=== PATIENT | male | born 1955 | race Caucasian/White ===

== ENCOUNTER → 2018-09-06 10:09 | Outpatient (CLI) | payer OTHER, SELFPAY ==
[2018-09-06 12:01] LABS: Absolute Lymphocyte Count 0.95 X10^3/ul (0.83-4.51); Absolute Neutrophil Count 1.9 X10^3/uL (2.0-7.7); Basophil# 0.02 X10^3/uL; Basophil% 0.6 % (0-1); Eosinophil# 0.11 X10^3/uL; Eosinophils% 3.3 % (0-5); Hematocrit 40.5 % (40-54); Hemoglobin 13.3 g/dl (13.0-16.5); Lymphocyte # 0.95 X10^3/ul (4.0); Lymphocyte % 28.4 % (19-41); Mean Corp Hgb Conc 32.8 g/gl (32-36); Mean Corpuscular Hgb 32.2 pg (27.0-32.0); Mean Corpuscular Volume 98.1 fL (80-94); Mean Platelet Vol. 9.8 fl (6.2-12.0); Monocyte# 0.41 X10^3/uL; Monocyte% 12.2 % (0-10); Neutrophil # 1.85 X10^3/uL (2.7-7.7); Neutrophil % 55.2 % (47-70); POSITIVE COUNT NO; POSITIVE DIFFERENTIAL NO; POSITIVE MORPHOLOGY NO; Platelet Count 239 K/mm3 (150-450); RBC Distribution Width CV 13.4 % (11.6-14.6); RBC Distribution Width SD 46.3 fl (35.1-43.9); Red Blood Count 4.13 M/mm3 (4.6-6.2); White Blood Count 3.4 K/mm3 (4.4-11.0)
[2018-09-06 12:20] LABS: AST(SGOT) 13 U/L (15-37); Alanine Aminotransfer ALT/SGPT 27 U/L (16-61); Albumin, Serum 3.5 g/dL (3.2-5.0); Alkaline Phosphatase 74 U/L (45-117); Anion Gap 10 (5-15); BUN 16 mg/dL (7-18); Calcium,Total 8.6 mg/dL (8.5-10.1); Chloride 105 mmol/L (98-107); Cholesterol 237 mg/dL (200); Creatinine, Serum 0.84 mg/dL (0.70-1.30); EST Glomerular Filtration Rate 98 mL/min (>60); Est Glom Filt Rate - Afr Amer 118 mL/min (>60); Globulin 3.4 g/dL (2.2-4.2); Glucose 79 mg/dL (74-106); High Density Lipoprotein 65 mg/dL; PSA,Total - Annual Screen 1.04 ng/mL (0.00-4.00); Protein, Total 6.9 g/dL (6.4-8.2); Sodium Level 144 mmol/L (136-145); T4 Free Direct 0.94 ng/dL (0.76-1.46); Thyroid Stim Hormone (TSH) 2.82 uIU/mL (0.358-3.74); Triglycerides 73 mg/dL; Very Low Density Lipoprotein 15 mg/dL (5-40)
== END ==
PROVIDERS: Family Provider Family Medicine; PCP Family Medicine; Visit Provider Family Medicine
DX: Z00.00 Encounter for general adult medical examination without abnormal findings (principal); E03.9 Hypothyroidism, unspecified; Z12.5 Encounter for screening for malignant neoplasm of prostate
CPT/HCPCS: 36415; 80053; 80061; 84153; 84439; 84443; 85025; G0103

== ENCOUNTER → 2018-09-27 09:44 | Outpatient (CLI) | payer OTHER, SELFPAY ==
--- NOTE | 2018-09-27 09:45 | RAD_ITS ---
STUDY: X-RAY - RIGHT KNEE REASON FOR EXAM: Male, 63 years old. Pain TECHNIQUE: 4 view(s) of the knee. COMPARISON: Left knee dated September 27, 2018 FINDINGS: Normal visualized distal femur. Normal visualized proximal tibia and fibula. Normal proximal tibiofibular articulation. There is mild degenerative arthrosis of the medial femorotibial compartment. Normal lateral femorotibial compartment. Normal patellofemoral articulation. The soft tissue structures are unremarkable. RAD/Knee 4 or More Views IMPRESSION: Mild degenerative changes. Electronically Signed: Marci Powell MD at 16:02 EST Tel , Service support ,
--- NOTE | 2018-09-27 09:45 | RAD_ITS ---
STUDY: X-RAY - LEFT KNEE REASON FOR EXAM: Male, 63 years old. Knee pain, no known injury. TECHNIQUE: 4 view(s) of the knee. COMPARISON: None. FINDINGS: Normal visualized distal femur. Normal visualized proximal tibia and fibula. Normal proximal tibiofibular articulation. There is no demonstrated fracture. There is minimal narrowing and small subchondral cyst of the medial femorotibial compartment. Normal lateral femorotibial compartment. Normal patellofemoral articulation. There is no demonstrated joint effusion. The soft tissue structures are unremarkable. RAD/Knee 4 or More Views IMPRESSION: Minimal degenerative arthrosis. Electronically Signed: Dyllan Huggins MD at 8:30 EST Tel , Service support ,
== END ==
PROVIDERS: Family Provider Family Medicine; PCP Family Medicine; Referring Provider Orthopaedic Surgery; Visit Provider Orthopaedic Surgery
DX: M25.561 Pain in right knee (principal); M25.562 Pain in left knee
CPT/HCPCS: 73564

== ENCOUNTER → 2019-09-11 09:22 | Outpatient (CLI) | payer OTHER, SELFPAY ==
[2018-09-27 09:53] VITALS: BMI 23.7
[2019-09-11 12:33] LABS: Absolute Lymphocyte Count 1.28 X10^3/uL (0.83-4.51); Absolute Neutrophil Count 1.9 X10^3/uL (2.0-7.7); Basophil# 0.03 X10^3/uL; Basophil% 0.8 % (0-1); Eosinophil# 0.16 X10^3/uL; Eosinophils% 4.2 % (0-5); Hematocrit 46.5 % (40-54); Hemoglobin 15.6 g/dL (13.0-16.5); Lymphocyte # 1.28 X10^3/ul (4.0); Lymphocyte % 33.6 % (19-41); Mean Corp Hgb Conc 33.5 g/dL (32-36); Mean Corpuscular Volume 95.3 fL (80-94); Mean Platelet Vol. 9.7 fl (6.2-12.0); Monocyte% 10.5 % (0-10); NRBC Flagged by Analyzer 0 % (0-5); Neutrophil # 1.92 X10^3/uL (2.7-7.7); Neutrophil % 50.4 % (47-70); Platelet Count 270 K/mm3 (150-450); RBC Distribution Width CV 12.1 % (11.6-14.6); RBC Distribution Width SD 42.3 fl (35.1-43.9); Red Blood Count 4.88 M/mm3 (4.6-6.2); White Blood Count 3.8 K/mm3 (4.4-11.0)
[2019-09-11 13:11] LABS: AST(SGOT) 15 U/L (15-37); Alanine Aminotransfer ALT/SGPT 28 U/L (16-61); Albumin, Serum 3.7 g/dL (3.2-5.0); Alkaline Phosphatase 93 U/L (45-117); Anion Gap 5 (5-15); BUN 13 mg/dL (7-18); BUN/Creat Ratio 14.5 RATIO (10-20); Calcium,Total 9.1 mg/dL (8.5-10.1); Chloride 106 mmol/L (98-107); Cholesterol 262 mg/dL (200); EST Glomerular Filtration Rate 91 mL/min (>60); Est Glom Filt Rate - Afr Amer 110 mL/min (>60); Globulin 3.6 g/dL (2.2-4.2); Glucose 87 mg/dL (74-106); High Density Lipoprotein 68 mg/dL; Potassium 4.4 mmol/L (3.5-5.1); Protein, Total 7.3 g/dL (6.4-8.2); Sodium Level 140 mmol/L (136-145); T4 Free Direct 1.02 ng/dL (0.76-1.46); Thyroid Stim Hormone (TSH) 2.84 uIU/mL (0.358-3.74); Triglycerides 59 mg/dL; Very Low Density Lipoprotein 12 mg/dL (5-40)
[2019-09-12 16:48] LABS: V-Zoster IgG (Immunity) 175 index (Immune >165)
== END ==
PROVIDERS: PCP Family Medicine; Visit Provider Family Medicine
DX: Z00.00 Encounter for general adult medical examination without abnormal findings (principal); E03.9 Hypothyroidism, unspecified; Z12.5 Encounter for screening for malignant neoplasm of prostate; Z23 Encounter for immunization
CPT/HCPCS: 36415; 80053; 80061; 84153; 84439; 84443; 85025; 86787; G0103

== ENCOUNTER → 2019-10-08 08:48 | Outpatient (CLI) | payer OTHER, SELFPAY ==
[2019-10-08 08:46] VITALS: BMI 23.7
--- NOTE | 2019-10-08 08:49 | RAD_ITS ---
STUDY: X-RAY - RIGHT ELBOW REASON FOR EXAM: Male, 64 years old. FLUID POCKET POSTERIOR/MEDIAL ELBOW TECHNIQUE: 3 view(s) of the elbow. COMPARISON: None. FINDINGS: Normal visualized humerus, radius and ulna. Normal radiocapitellar and ulnotrochlear articulations. The soft tissue structures are unremarkable. RAD/Elbow min 3 Views IMPRESSION: Normal x-ray examination of the elbow. Electronically Signed: Jonathan Campos MD at 16:57 EDT , Service support ,
== END ==
PROVIDERS: PCP Family Medicine; Referring Provider Orthopaedic Surgery; Visit Provider Orthopaedic Surgery
DX: M25.421 Effusion, right elbow (principal)
CPT/HCPCS: 73080

== ENCOUNTER → 2021-03-24 07:20 | Outpatient (CLI) | payer MEDICARE, SELFPAY ==
[2019-10-08 08:46] VITALS: BMI 23.7
--- NOTE | 2021-03-24 07:26 | CT_ITS ---
STUDY: LOW DOSE CT LUNG CANCER SCREENING REASON FOR EXAM: Male, 65 years old. SCREENING FOR LUNG CA,HO SMOKING W/CHEMICAL INHALATION EXPOSURE,. Patient smoked half a pack of cigarettes per day for 20 years. Patient quit 12 years ago. RADIATION DOSAGE (If Supplied By Facility): CTDIvol = ( 3.02 ) mGy, DLP = ( 110.98 ) mGycm TECHNIQUE: No contrast was administered. Low dose technique was utilized (average mAS-38 and kVp 120). 1.25 mm axial source images with a slice interval of 1.25-mm were reconstructed in lung windows. 2.5 mm axial source images with a slice interval of 2.5-mm were reconstructed in lung windows. 5.0 mm axial source images with a slice interval of 5.0-mm were reconstructed in soft tissue windows. Nodule measured using lung windows on PACS and/or independent workstation with automated measurement of minimum and maximum diameter. Nodule measurement reported as average diameter rounded to the nearest whole number. Growth is defined as an increase ins size of greater than 1.5 mm. COMPARISON: None. NODULES: 2 mm calcified granuloma in the posterior medial aspect of the right upper lobe. This is pleural-based. Punctate calcified granuloma in the right lower lobe adjacent to the right hemidiaphragm. Emphysema: Mild degree of emphysematous changes Endobronchial lesion: None Aorta: Mild degree of atherosclerotic plaque formation. Coronary arteries: Coronary artery calcification. Mediastinal nodes: Calcified right infrahilar lymph node and subcarinal nodes. Other chest and abdominal findings: Degenerative changes of the thoracic spine. Sclerosis in the cystic changes along the inferior endplate of the C6 vertebrae. CT/Low Dose CT Lung Screening IMPRESSION: Lung-RADS category 2 - Continue annual screening with LDCT in 12 months. IMPORTANT NOTES FOR USE: ACR Lung-RADS Version 1.1 Assessment Categories Release Date: 2018 Category: Coded 0-4 bases on nodule(s) with highest degree of suspicion. Negative screen is defined as categories 1 and 2; a positive screen is defined as categories 3 and 4. Category 3 and 4A nodules that are unchanged on interval CT should be coded as category 2, and individuals returned to screening in 12 months. Category 4X: Category 3 or 4 nodules with additional imaging findings that increase the suspicion of lung cancer, such as spiculation, GGN that doubles in size in 1 year, enlarged lymph notes, etc. Category Modifiers: S (significant finding unrelated to lung cancer) Electronically Signed: Maverick Paula MD at 9:49 EDT , Service support ,
--- NOTE | 2021-03-24 07:38 | US_ITS ---
PROCEDURES: ULTRASOUND AORTA REASON FOR EXAM: Male, 65 years old. SCREENING TECHNIQUE: Ultrasound evaluation of the aorta was performed with real-time and static fairchild-scale imaging. COMPARISON: None. FINDINGS: There is no elongation or tortuosity of the abdominal aorta. Aorta measures: Proximal 2.1 cm. Middle 2.0 cm. Distal 1.7 cm. Aorta measure transversely: Proximal 2.0 cm. Middle 1.8 cm. Distal 1.2 cm. Right iliac artery measures: 1.4 cm. Right iliac artery measure transversely: 1.1 cm. Left iliac artery measures: 1.1 cm. Left iliac artery measure transversely: 1.0 cm. There is no demonstrated aneurysm.. US/US ABD AORTA SCREEN/AAA IMPRESSION: Normal abdominal aorta. Electronically Signed: Maverick Paula MD at 13:44 EDT , Service support ,
== END ==
PROVIDERS: PCP Family Medicine; Referring Provider Family Medicine; Visit Provider Family Medicine
DX: Z12.2 Encounter for screening for malignant neoplasm of respiratory organs (principal); Z13.6 Encounter for screening for cardiovascular disorders; Z87.891 Personal history of nicotine dependence
CPT/HCPCS: 71271; 76706

== ENCOUNTER → 2022-03-21 | Outpatient (CLI) | payer MEDICARE, SELFPAY ==
[2022-03-21 15:52] LABS: Cholesterol 283 mg/dL (200); High Density Lipoprotein 66 mg/dL; PSA,Total - Annual Screen 1.62 ng/mL (0.00-4.00); Thyroid Stim Hormone (TSH) 2.72 uIU/mL (0.358-3.74); Triglycerides 100 mg/dL; Very Low Density Lipoprotein 20 mg/dL (5-40)
== END | disposition home or self-care (01) ==
LOC: MTLAB 14:07
PROVIDERS: PCP Family Medicine; Referring Provider Family Medicine; Visit Provider Family Medicine
DX: E78.5 Hyperlipidemia, unspecified (principal); E03.9 Hypothyroidism, unspecified; Z12.5 Encounter for screening for malignant neoplasm of prostate
CPT/HCPCS: 36415; 80061; 84153; 84443; G0103

== ENCOUNTER → 2023-07-18 | Outpatient (CLI) | payer MEDICARE, SELFPAY ==
[2023-07-18 15:35] LABS: Absolute Lymphocyte Count 1.27 X10^3/uL (0.83-4.51); Absolute Neutrophil Count 2.2 X10^3/uL (2.0-7.7); Basophil# 0.01 X10^3/uL; Basophil% 0.3 % (0-1); Eosinophil# 0.07 X10^3/uL; Eosinophils% 1.8 % (0-5); Hematocrit 46.4 % (40-54); Hemoglobin 15.1 g/dL (13.0-16.5); Lymphocyte # 1.27 X10^3/ul (0.83-4.51); Lymphocyte % 31.8 % (19-41); Mean Corp Hgb Conc 32.5 g/dL (32-36); Mean Corpuscular Hgb 32.2 pg (27.0-32.0); Mean Corpuscular Volume 98.9 fL (80-94); Mean Platelet Vol. 9.9 fl (6.2-12.0); Monocyte# 0.44 X10^3/uL; NRBC Flagged by Analyzer 0 % (0-5); Neutrophil # 2.19 X10^3/uL (2.7-7.7); Neutrophil % 54.8 % (47-70); Platelet Count 282 K/mm3 (150-450); RBC Distribution Width CV 12.8 % (11.6-14.6); Red Blood Count 4.69 M/mm3 (4.6-6.2)
[2023-07-18 16:07] LABS: AST(SGOT) 18 U/L (15-37); Alanine Aminotransfer ALT/SGPT 24 U/L (16-61); Albumin, Serum 3.7 g/dL (3.2-5.0); Alkaline Phosphatase 72 U/L (45-117); Anion Gap 7 (5-15); BUN 17 mg/dL (7-18); BUN/Creat Ratio 22.8 RATIO (10-20); Calcium,Total 8.7 mg/dL (8.5-10.1); Chloride 104 mmol/L (98-107); Cholesterol 259 mg/dL (200); Creatinine, Serum 0.75 mg/dL (0.70-1.30); EST Glomerular Filtration Rate 111 mL/min (>60); Est Glom Filt Rate - Afr Amer 134 mL/min (>60); Globulin 3.6 g/dL (2.2-4.2); Glucose 95 mg/dL (74-106); High Density Lipoprotein 72 mg/dL; PSA,Total - Annual Screen 1.63 ng/mL (0.00-4.00); Potassium 4.2 mmol/L (3.5-5.1); Protein, Total 7.3 g/dL (6.4-8.2); Sodium Level 141 mmol/L (136-145); T4 Free Direct 1.02 ng/dL (0.76-1.46); Thyroid Stim Hormone (TSH) 2.06 uIU/mL (0.358-3.74); Triglycerides 77 mg/dL; Very Low Density Lipoprotein 15 mg/dL (5-40)
== END | disposition home or self-care (01) ==
PROVIDERS: PCP Family Medicine; Visit Provider Family Medicine
DX: E78.5 Hyperlipidemia, unspecified (principal); Z12.5 Encounter for screening for malignant neoplasm of prostate; Z51.81 Encounter for therapeutic drug level monitoring; Z78.9 Other specified health status; E03.9 Hypothyroidism, unspecified
CPT/HCPCS: 36415; 80053; 80061; 84153; 84439; 84443; 85025; G0103

== ENCOUNTER → 2023-10-16 | Outpatient (CLI) | payer MEDICARE, SELFPAY | END | disposition home or self-care (01) | LOC: SL 11:31 | PROVIDERS: PCP Family Medicine; Referring Provider Family Medicine; Visit Provider Family Medicine | DX: G47.10 Hypersomnia, unspecified (principal) | CPT/HCPCS: 95806 ==

== ENCOUNTER → 2023-11-01 | Outpatient (CLI) | payer MEDICARE, SELFPAY | END | disposition home or self-care (01) | LOC: SL 09:21 | PROVIDERS: PCP Family Medicine; Visit Provider Family Medicine | DX: Z00.00 Encounter for general adult medical examination without abnormal findings (principal) ==

== ENCOUNTER → 2024-07-21 | Outpatient (CLI) | payer MEDICARE, SELFPAY ==
[2024-07-21 12:16] LABS: Absolute Neutrophil Count 2.8 X10^3/uL (2.0-7.7); Basophil# 0.01 X10^3/uL; Basophil% 0.2 % (0-1); Eosinophil# 0.19 X10^3/uL; Eosinophils% 3.9 % (0-5); Hematocrit 44.2 % (40-54); Hemoglobin 14.4 g/dL (13.0-16.5); Lymphocyte % 26.5 % (19-41); Mean Corp Hgb Conc 32.6 g/dL (32-36); Mean Corpuscular Hgb 32.2 pg (27.0-32.0); Mean Corpuscular Volume 98.9 fL (80-94); Mean Platelet Vol. 9.8 fl (6.2-12.0); Monocyte# 0.56 X10^3/uL; Monocyte% 11.4 % (0-10); NRBC Flagged by Analyzer 0 % (0-5); Neutrophil # 2.84 X10^3/uL (2.7-7.7); Neutrophil % 57.8 % (47-70); Platelet Count 281 K/mm3 (150-450); RBC Distribution Width CV 12.5 % (11.6-14.6); RBC Distribution Width SD 45.2 fl (35.1-43.9); Red Blood Count 4.47 M/mm3 (4.6-6.2); White Blood Count 4.9 K/mm3 (4.4-11.0)
[2024-07-21 12:31] LABS: ALB/GLOB Ratio 0.9 RATIO (0.9-2.4); AST(SGOT) 17 U/L (15-37); Alanine Aminotransfer ALT/SGPT 25 U/L (16-61); Albumin, Serum 3.5 g/dL (3.2-5.0); Alkaline Phosphatase 86 U/L (45-117); Anion Gap 4 (5-15); BUN 18 mg/dL (7-18); BUN/Creat Ratio 20.6 RATIO (10-20); Chloride 105 mmol/L (98-107); Cholesterol 240 mg/dL (200); Creatinine, Serum 0.87 mg/dL (0.70-1.30); EST Glomerular Filtration Rate 92 mL/min (>60); Est Glom Filt Rate - Afr Amer 111 mL/min (>60); Globulin 3.9 g/dL (2.2-4.2); Glucose 111 mg/dL (74-106); High Density Lipoprotein 63 mg/dL; PSA,Total - Annual Screen 1.98 ng/mL (0.00-4.00); Potassium 3.9 mmol/L (3.5-5.1); Protein, Total 7.4 g/dL (6.4-8.2); Sodium Level 137 mmol/L (136-145); T4 Free Direct 1.11 ng/dL (0.76-1.46); Triglycerides 67 mg/dL; Very Low Density Lipoprotein 13 mg/dL (5-40); Vitamin B12 633 pg/mL (211-911)
== END | disposition home or self-care (01) ==
LOC: BFHLAB 08:46
PROVIDERS: PCP Family Medicine; Visit Provider Family Medicine
DX: I25.10 Atherosclerotic heart disease of native coronary artery without angina pectoris (principal); E03.9 Hypothyroidism, unspecified; E78.5 Hyperlipidemia, unspecified; Z12.5 Encounter for screening for malignant neoplasm of prostate; E53.8 Deficiency of other specified B group vitamins; D75.89 Other specified diseases of blood and blood-forming organs
CPT/HCPCS: 36415; 80053; 80061; 82607; 84153; 84439; 84443; 85025; G0103

== ENCOUNTER 2024-11-04 10:34 | Emergency (ER) | payer MEDICARE, SELFPAY ==
[2024-11-04 10:34] VITALS: BP 140/83; PULSE 86; RESP 14; TEMP 36.1; O2SAT 97; BMI 25.9
--- NOTE | 2024-11-04 11:05 | EDS_ITS ---
HPI History of Present Illness Chief Complaint: Headache Detail of Chief Complaint: headache Informant: patient Narrative Narrative: Patient presents with a headache that started suddenly yesterday at 5pm after doing mulch outside all day. Pain started in back of neck and went to top of head. No vomitting. No recent illness. No history of migraines. Patient states he fell off a ladder about 4-5 feet into grass 3 weeks ago. No LOC. He has history of vertigo. Not on blood thinnners. No family history of brain tumors or aneurysms. PFSH [facility] Medical History (Updated 11/04/24 @ 13:[address] Gaurav Che, DO) Hypothyroid Effusion of knee joint right Primary osteoarthritis of right knee Home Medications ?Medication ?Instructions ?Recorded ?Last Taken ?Type levothyroxine 50 mcg tablet 50 mcg PO DAILY 09/27/18 U nknown History (Synthroid) selenium 200 mcg capsule 200 mcg PO DAILY 09/27/18 Un known History omega-3 acid ethyl esters 1 gram PO 10/08/19 Unknown H istory capsule calcium carbonate (Calcium 600) 600 mg PO DAILY Unknown History coenzyme Q10 10 mg capsule (Co 10 mg PO ONCE 11/28/21 Unknown History Q-10) Allergy/AdvReac Type Severity Reaction Status Date / Time latex AdvReac Intermediate Rash Verified 11/01/22 09:28 Surgical History Hx of hernia repair Social History (Updated 06/21/22 @ 08:41 by Nishi Devries) Smoking Status: Never smoker alcohol intake: current alcohol intake frequency: a few times a week ROS ROS ED Review of Systems ROS Unobtainable: other Constitutional Constitutional ED: Reports lethargy; Denies chills, fever(s), sweats or weight loss Eyes Eyes: Denies blurry vision, change in vision or diplopia ENT ENT ED: Denies rhinorrhea or sore throat Cardiovascular Cardiovascular: Denies chest pain, orthopnea or racing heartbeat Respiratory/Chest Respiratory/Chest: Denies cough, dyspnea, dyspnea on exertion, orthopnea or sputum Gastrointestinal Gastrointestinal: Denies abdominal pain, diarrhea, nausea or vomiting Genitourinary Genitourinary ED: Denies dysuria, hematuria or urinary frequency Musculoskeletal Musculoskeletal: Reports neck pain; Denies arthralgias, back pain or myalgias Integumentary Denies abscess, Abrasions or rash Neurologic Neurologic: Reports headache(s); Denies weakness Psychiatric Psychiatric: Denies anxiety, depression or suicidal thoughts Endocrine Endocrinology: Denies polydipsia, polyphagia or polyuria Hematologic/Lymphatic Hematologic/Lymphatic: Denies easy bleeding, easy bruising or lymphadenopathy Allergic/Immunologic Allergic/Immunologic ED: Denies mouth swelling, tongue swelling or urticaria EXAM Physical Exam Const Vital Signs: 11/04/24 10:34 11/04/24 11:40 11/04/24 12:00 Temperature 97 F L Temperature Source Temporal Pulse Rate 86 89 Respiratory Rate 14 16 Blood Pressure 140/83 H 153/105 H 156/104 H Blood Pressure Mean 102 121 121 Pulse Ox 97 98 Oxygen Delivery Method Room Air Room Air 11/04/24 12:38 Temperature Temperature Source Pulse Rate Respiratory Rate Blood Pressure 132/90 H Blood Pressure Mean 104 Pulse Ox Oxygen Delivery Method Positive well nourished and well developed General Appearance ED: well developed and NAD HEENT Reports TM's clear and moist mucous membranes normocephalic and atraumatic; Negative for trauma or tenderness Tympanic Membrane ED: Yes TM's clear Eyes PERRL and EOMs intact bilaterally General Eye ED: Negative for pale conjunctiva or scleral icterus Neck no lymphadenopathy, supple and no JVD General: Negative for tenderness Chest Wall inspection of chest normal and palpation of chest normal Chest: Negative for tenderness Resp normal respiratory effort and clear to auscultation bilaterally Effort and Inspection: Negative for respiratory distress or pain with movement Auscultation: Negative for rhonchi, wheezes or diminished lung sounds Cardio regular rate, regular rhythm, S1 normal heart sound, S2 normal heart sound and no murmurs Peripheral Pulses: pulses 2+ throughout GI normal to inspection, nondistended, normoactive bowel sounds, soft to palpation, non-tender, non-distended and no masses Back/Spine no CVA tenderness and no thoracic nor lumbar tenderness Extremity normal to inspection General Extremety ED: Negative for edema General Extremity: Negative for edema Neuro oriented x3, CN's II-XII intact bilaterally, no sensory deficits noted and gait normal Sensorium / Orientation: awake, alert, oriented to person, oriented to place and oriented to time Motor Exam: strength 5/5 throughout and strength abnormal Psych mental status grossly normal Skin no rashes or lesions noted and no wounds MDM MDM MDM Narrative Medical decision making narrative: Patient presents the ER with sudden onset of severe headache. In the differential would be intracranial hemorrhage versus migraine or other etiology. IV line established. CBC with differential obtained showed white count 4.2 with hemoglobin 14.8 platelet count 260. Chemistries unremarkable. CT scan of the brain and CTA head and neck obtained read by radiology who called me and stated patient has a subarachnoid hemorrhage but could not see a definitive aneurysm but suspected old called aneurysm. There is also concern for possible bilateral dissections of the internal carotid arteries. Case was discussed with patient and his . They would like to go to [facility] for definitive care. Spoke with [facility] transfer line and patient was accepted by neurosurgery they are Dr. Sevrin. Lab Data Attestation: I reviewed the patient's lab results. Labs: Laboratory Results - last 24 hr 11/04/24 11:15 WBC 4.2 L RBC 4.55 L Hgb 14.8 Hct 43.4 MCV 95.4 H MCH 32.5 H MCHC 34.1 RDW Std Deviation 46.6 H RDW Coeff of Isabel 13.2 Plt Count 260 MPV 9.1 Immature Gran % (Auto) 0.000 Neut % (Auto) 59.1 Lymph % (Auto) 24.5 Spalding % (Auto) 13.4 H Eos % (Auto) 2.8 Baso % (Auto) 0.2 Absolute Neuts (auto) 2.5 Absolute Lymphs (auto) 1.04 Nucleated RBC % 0 Sodium 142 Potassium 4.7 Chloride 105 Carbon Dioxide 27.5 Anion Gap 10 BUN 13 Creatinine 0.89 Estim Creat Clear Calc 96.17 Est GFR (MDRD) Non-Af 93 BUN/Creatinine Ratio 15.1 Glucose 67 L Calcium 9.6 Critical Care Time Critical Care Time: Yes Critical care time (excluding procedures): 30-74 minutes, Including time spent:, Discussing w/Patient &/or Family/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, Discussing w/Consultants, Arranging Admission or Transfer, Performing Direct Patient Care at Bedside and - (30 minutes) Discharge Plan Triage Chief Complaint: Headache ED Provider: Gaurav Che Dx/Rx/DC Orders Clinical Impression: Subarachnoid hemorrhage, Cephalalgia Prescriptions: No Action levothyroxine [Synthroid] 50 mcg tablet 50 mcg PO DAILY selenium 200 mcg capsule 200 mcg PO DAILY omega-3 acid ethyl esters 1 gram capsule PO coenzyme Q10 [Co Q-10] 10 mg capsule 10 mg PO ONCE calcium carbonate [Calcium 600] 600 mg calcium (1,500 mg) tablet 600 mg PO DAILY Primary Care Provider: Michael Pike Referrals: Michael Pike DO [Primary Care Provider] - Print Language: Portuguese Disposition Disposition: DC/Tx to Another Type of HCF
[2024-11-04 11:24] LABS: Absolute Lymphocyte Count 1.04 X10^3/uL (0.83-4.51); Absolute Neutrophil Count 2.5 X10^3/uL (2.0-7.7); Basophil# 0.01 X10^3/uL; Basophil% 0.2 % (0-1); Eosinophil# 0.12 X10^3/uL; Eosinophils% 2.8 % (0-5); Hematocrit 43.4 % (40-54); Hemoglobin 14.8 g/dL (13.0-16.5); Lymphocyte # 1.04 X10^3/ul (0.83-4.51); Lymphocyte % 24.5 % (19-41); Mean Corp Hgb Conc 34.1 g/dL (32-36); Mean Corpuscular Hgb 32.5 pg (27.0-32.0); Mean Corpuscular Volume 95.4 fL (80-94); Mean Platelet Vol. 9.1 fl (6.2-12.0); Monocyte# 0.57 X10^3/uL; Monocyte% 13.4 % (0-10); NRBC Flagged by Analyzer 0 % (0-5); Neutrophil % 59.1 % (47-70); Platelet Count 260 K/mm3 (150-450); RBC Distribution Width CV 13.2 % (11.6-14.6); RBC Distribution Width SD 46.6 fl (35.1-43.9); Red Blood Count 4.55 M/mm3 (4.6-6.2); White Blood Count 4.2 K/mm3 (4.4-11.0)
[2024-11-04 11:40] VITALS: BP 153/105
--- NOTE | 2024-11-04 11:45 | CT_ITS ---
PROCEDURE: CTA HEAD AND NECK W/ CONTRAST 11/04/2024 REASON FOR EXAM: SUDDEN HEADACHE TECHNIQUE: CT head was performed without IV contrast. Subsequently, CTA head and neck was performed with IV contrast. Multiplanar reformats and MIP as well as 3D reconstructions were generated. CONTRAST: Isovue 370 VOLUME: 100 mL Gauge IV One or more dose reduction techniques were used (e.g., Automated exposure control, adjustment of the mA and/or kV according to patient size, use of iterative reconstruction technique). RADIATION DOSE SUMMARY: CTDlvol: 44.99+ 37.37+ 19.29 mGy DLP: 1573.32 mGycm COMPARISON: None FINDINGS: CT HEAD: Subarachnoid hemorrhage is seen in the basilar cisterns, RIGHT slightly greater than LEFT, and extending inferiorly along the anterior surface of the vanessa and medulla at least to the level of the foramen magnum. No definite intraventricular extension. No definite acute territorial infarct, or mass. No ventriculomegaly. Patchy opacification and mucosal thickening of the ethmoid air cells and sphenoid sinuses as well as the inferior frontal sinuses. Moderate mucosal thickening in the utny-cd-[id number] mucosal thickening in the BLINT-hdwmiuk-thvj-LEFT maxillary sinuses. Mastoid air cells are clear. Scalp and calvarium unremarkable. Intracranial atherosclerosis. Degenerative changes LEFT TMJ. CTA NECK: Aortic Arch: Trace atherosclerosis. Patent great vessel origins. Brachiocephalic and subclavians: Patent. Tortuosity with focal stenosis along the proximal LEFT subclavian near the thoracic inlet. RIGHT Carotid: Right CCA: Patent. Nonobstructing atherosclerosis in the carotid bulb. Right ICA: Patent. Right ECA: Patent. LEFT Carotid: Left CCA: Patent. Nonobstructing atherosclerosis in the carotid bulb. Left ICA: Patent. Nonobstructing atherosclerosis proximally with fusiform ectasia and mild presumably atherosclerotic irregularity. Left ECA: Patent. Vertebrals: RIGHT dominant. LEFT vertebral artery originates from the arch, normal variant. Focal severe stenosis of the LEFT vertebral artery as it pierces the dura with diminutive V4 segment. RIGHT Vertebral: Patent. LEFT Vertebral: Patent. CTA HEAD: Examination slightly limited by venous contamination. Anterior circulation: No large vessel occlusion or high-grade stenosis identified. Mild nonobstructing atherosclerosis in the bilateral carotid siphons. Focal calcific atherosclerosis and likely at least mild/moderate stenosis of proximal LEFT A3 segment. On a few images, there is a questionable faint linear hypodensity within the clinoid and supraclinoid RIGHT ICA (for example, series 4, image 394 and 384). A similar finding is present within the LEFT distal petrous ICA (series 4, image 361). Posterior circulation: Severe stenosis of the distal vertebral artery with diminutive V4 segment of the LEFT vertebral artery as above. Otherwise, no large vessel occlusion or high-grade stenosis identified. Prominent bilateral PICA. origin of the LEFT DESIGN TRANSFERRER Aneurysms: None definitely identified. Venous structures: Brisk and asymmetric opacification of the RIGHT cavernous sinus. CT/CTA Head AND Neck W/ Contrast IMPRESSION: 1. Subarachnoid hemorrhage centered in the [id number]-LEFT basilar cist erns. No intraventricular extension or hydrocephalus at this time. 2. No definite intracranial aneurysm identified, however there is brisk and asy mmetric opacification of the RIGHT cavernous sinus, which raises suspicion for either an occult ICA aneurysm in the region o f the cavernous sinus possibly obscured by dense opacification of the sinus itself and/or caroticocavernous fistula fistula. Re commend neuro IR/neurosurgical consultation as well as consideration of further evaluation by catheter angiography. 3. Faint linear hypodensities in the bilateral intracranial ICAs, questionable dissection flaps versus artifact. Bilateral ICA dissections would notably be a rare event. Consider a follow-up exam to evalua te for persistence. This may additionally be evaluated by catheter angiography as above. 4. No high-grade stenosis or large vessel occlusion identified. 5. Paranasal sinus disease. 6. Additional description as above. IMPRESSION: Red Alert: Findings in #1-3 above. The critical information in #1-2 above was relayed directly by me by telephone to Gaurav Che on 11/04/2024 at 10:23 am and #3 above subsequently at 10:58 MST with readback verification. Transfer to an out side facility is planned. Reading Location: [id number]
[2024-11-04 12:00] VITALS: BP 156/104; PULSE 89; RESP 16; O2SAT 98
[2024-11-04 12:04] LABS: Anion Gap 10 (5-15); BUN 13 mg/dL (4-19); BUN/Creat Ratio 15.1 RATIO (10-20); Calcium,Total 9.6 mg/dL (7.6-11.0); Carbon Dioxide 27.5 mmol/L (21.0-32.0); Chloride 105 mmol/L (98-108); Creatinine, Serum 0.89 mg/dL (0.70-1.20); EST Glomerular Filtration Rate 93 (>60); Estimated Creatinine Clearance 96.17 ml/min (50-250); Glucose 67 mg/dL (70-99); Potassium 4.7 mmol/L (3.3-5.1); Sodium Level 142 mmol/L (133-145)
[2024-11-04 12:38] VITALS: BP 132/90
[2024-11-04 13:00] VITALS: BP 129/72; PULSE 71; RESP 18; TEMP 37.2; O2SAT 97
[2024-11-04 13:52] VITALS: BP 132/76; PULSE 78; RESP 16; TEMP 37.1; O2SAT 99
== END 2024-11-04 13:53 | disposition other institution (70) ==
PROVIDERS: Emergency Provider Emergency Medicine; PCP Family Medicine; Visit Provider Emergency Medicine
DX: I60.9 Nontraumatic subarachnoid hemorrhage, unspecified (principal); R51.9 Headache, unspecified; M54.9 Dorsalgia, unspecified; E03.9 Hypothyroidism, unspecified; W11.XXXD Fall on and from ladder, subsequent encounter
CPT/HCPCS: 70496; 70498; 80048; 85025; 99284; Q9967; A4216

== ENCOUNTER → 2025-04-16 | Outpatient (CLI) | payer MEDICARE, SELFPAY | END | disposition home or self-care (01) | LOC: MTLAB 10:57 | PROVIDERS: PCP Family Medicine; Referring Provider Family Medicine; Visit Provider Family Medicine | DX: R19.7 Diarrhea, unspecified (principal) | CPT/HCPCS: 83630; 87177; 87209; 87493 ==

== ENCOUNTER 2025-05-27 10:56 | Outpatient (CLI) | payer MEDICARE, SELFPAY ==
[2025-05-27 14:23] LABS: Hematocrit 43.6 % (40-54); Hemoglobin 14.0 g/dL (13.0-16.5); Mean Corp Hgb Conc 32.1 g/dL (32-36); Mean Corpuscular Volume 93.2 fL (80-94); Mean Platelet Vol. 10.2 fl (6.2-12.0); Platelet Count 309 K/mm3 (150-450); RBC Distribution Width CV 13.0 % (11.6-14.6); RBC Distribution Width SD 44.7 fl (35.1-43.9); Red Blood Count 4.68 M/mm3 (4.6-6.2); White Blood Count 4.4 K/mm3 (4.4-11.0)
[2025-05-27 14:36] LABS: CRP 3.11 mg/L (0.0-3.0)
[2025-05-29 16:09] LABS: Immunoglobulin A 371 mg/dL (61-437)
[2025-05-29 16:09] LABS: Fats, Neutral Normal (.); Fats, Total Normal (.)
== END 2025-05-27 23:59 | disposition home or self-care (01) ==
LOC: MTLAB 11:00
PROVIDERS: PCP Family Medicine; Referring Provider Internal Medicine Gastroenterology; Visit Provider Internal Medicine Gastroenterology
DX: R19.7 Diarrhea, unspecified (principal); I10 Essential (primary) hypertension
CPT/HCPCS: 36415; 82705; 82784; 83516; 85027; 85652; 86140; 86255

== ENCOUNTER → 2025-07-09 | Outpatient (CLI) | payer MEDICARE, SELFPAY ==
[2025-07-09 16:49] LABS: AST(SGOT) 21 U/L (<=37); Alanine Aminotransfer ALT/SGPT 20 U/L (<=46); Albumin, Serum 4.1 g/dL (3.4-4.8); Alkaline Phosphatase 65 U/L (40-129); Bilirubin, Direct 0.17 mg/dL (0.00-0.30); Cholesterol 245 mg/dL (<=200); Globulin 2.7 g/dL (2.2-4.2); Low Density Lipoprotein Calc. 161 mg/dL; Triglycerides 67 mg/dL; Very Low Density Lipoprotein 13 mg/dL (5-40); cholesterol:hdl ratio screen 3.37
== END | disposition home or self-care (01) ==
LOC: BFHLAB 11:19
PROVIDERS: PCP Family Medicine; Visit Provider Family Medicine
DX: E03.9 Hypothyroidism, unspecified (principal); E78.5 Hyperlipidemia, unspecified; Z12.5 Encounter for screening for malignant neoplasm of prostate; F10.90 Alcohol use, unspecified, uncomplicated
CPT/HCPCS: 36415; 80061; 80076; 84443

== ENCOUNTER → 2025-07-27 | Outpatient (CLI) | payer MEDICARE, SELFPAY ==
[2025-07-27 15:32] LABS: PSA,Total - Annual Screen 2.26 ng/mL (0.02-4.00)
== END | disposition home or self-care (01) ==
LOC: BFHLAB 11:52
PROVIDERS: PCP Family Medicine; Visit Provider Family Medicine
DX: Z12.5 Encounter for screening for malignant neoplasm of prostate (principal); E78.5 Hyperlipidemia, unspecified; E03.9 Hypothyroidism, unspecified; F10.90 Alcohol use, unspecified, uncomplicated
CPT/HCPCS: 36415; 84153; G0103